=== PATIENT | male | born 1950 | race Caucasian/White ===

== ENCOUNTER 2019-02-04 05:47 | Day surgery (SDC) | payer MEDICARE, BC ==
[2019-01-27 15:47] VITALS: BMI 22.1
--- NOTE | 2019-01-30 23:31 | HP ---
HISTORY OF PRESENT ILLNESS: Mr. Couch is a 68-year-old male, who reports to our office. He recently retired from [employer] and wants to remain active. He fell on a climbing wall in August and has noticed that his back and leg pain is now refractory to therapy, medications, injections, and activity modification. REVIEW OF SYSTEMS: A 10-point review of systems has been completed and is negative other than stated in the above HPI. PAST MEDICAL HISTORY: Hypertension. ALLERGIES: BACTRIM. PAST SURGICAL HISTORY: Knee, sinus, ACDF C6, hernia repair. FAMILY HISTORY: Father is . Mother is . Daughter alive. SOCIAL HISTORY: The patient is a nonsmoker. Drinks alcohol occasionally. MEDICATIONS: 1. Prednisone. 2. Losartan and hydrochlorothiazide. 3. Zolpidem tartrate. 4. Excedrin Extra Strength. 5. Gabapentin. PHYSICAL EXAMINATION: CONSTITUTIONAL: The patient is a well-appearing, alert, and oriented. No visible distress. RESPIRATIONS: Normal work of breathing on room air. Symmetric chest rise. NEUROLOGIC: Motor exam, there is normal strength in the iliopsoas, quadriceps, hamstrings, anterior tib, EHL, gastroc, and toe flexors. Sensory exam, there is no loss to sensation. IMAGING DATA: MRI L3-4 and L4-5 severe stenosis at L5-S1, left greater than right foraminal disease, severe. Flexion-extension x-rays stable of the lumbar spine. ASSESSMENT AND PLAN: Lumbar stenosis without neurogenic claudication with radiculopathy. Dr. Altamirano has offered surgery to decompress L3 through S1 laminectomy with an L5-S1 foraminotomy. The patient states that he understands the risks and is willing to proceed with surgery. Job ID: [id number]
[2019-02-04] MEDS ORDERED: Bupivacaine HCl 0.5%/Epinephrine 1:200,000/PF 30 ml Vial ONE (06:17)
[2019-02-04] MEDS ORDERED: Thrombin 5000 UNITS/5 ML VIAL ONE (06:17)
[2019-02-04] MEDS ORDERED: Sodium Chloride 0.9% 10 ML ONE (06:17)
[2019-02-04] MEDS ORDERED: Fentanyl 100 MCG/2 ML VIAL ONE ×3 (06:36→10:49)
[2019-02-04] MEDS ORDERED: HYDROmorphone 2 MG/ML VIAL SLOW IVP PRN (08:52)
[2019-02-04] MEDS ORDERED: Promethazine HCl 25 MG/ML VIAL IM PRN ×2 (08:52→12:16)
[2019-02-04] MEDS ORDERED: Ondansetron HCl/PF 4 MG/2 ML Vial IVP PRN (08:52)
[2019-02-04] MEDS ORDERED: Promethazine HCl 25 MG/ML VIAL SLOW IVP PRN (08:52)
--- NOTE | 2019-02-04 11:27 | OP ---
DATE OF PROCEDURE: 02/04/2019 NARCOTICS AGENT: Ning Lopes PA-C PREOPERATIVE INDICATION: Treat pain and prevent neurological deterioration. PREOPERATIVE DIAGNOSIS: Multilevel lumbar stenosis with neurogenic claudication. POSTOPERATIVE DIAGNOSIS: Multilevel lumbar stenosis with neurogenic claudication. PROCEDURE PERFORMED: Decompressive laminectomy, medial facetectomy, foraminotomy L3-L4, L4-L5, L5-S1, left-sided L4-L5 microdiskectomy, operating microscope. PREOPERATIVE MEDICATION: Ancef 2 g IV. DRAIN NUMBER: Zero. DRAIN TYPE: None. DESCRIPTION OF PROCEDURE: The patient was brought to the operating room. General endotracheal anesthesia was induced. The patient was carefully positioned on the operating table in the prone position with the chest and hips supported by gel-filled chest rolls. A lateral fluoro radiograph was used to plan our incision. The lumbar skin was sterilely prepped and draped. We opened with a 10-blade knife and we controlled bleeding with bipolar and monopolar cautery. We used monopolar cautery to dissect through subcutaneous tissues to the thoracodorsal fascia. We incised the fascia in the midline and reflected the paraspinal muscles off the spinous process and laminae of L3, L4, L5 and the superior portion of the sacrum. A lateral fluoro radiograph confirmed the levels upon which we were operating. We then used an Adson rongeur to remove the spinous processes of L3, L4, and L5. Using a Kerrison rongeur, we fashioned a laminectomy down the midline. We widened our laminectomy defect by performing medial facetectomies and foraminotomies. At L4-L5, we needed the operating microscope to dissect through cranial lesion/scar tissue. We brought the operative microscope into the field. Under microscopic magnification using microsurgical techniques, we carefully dissected dense scar tissue off the dura. We identified the L5 nerve root and the L5 nerve root foramina as well as the L5 pedicles. This was done on both sides, and we carefully performed medial facetectomies and foraminotomies over those nerve roots. With the operating microscope, we went back to the L3, L4, L5, and S1 nerve roots, and made sure our Dominguez ball probe could pass through the lateral recess and out their respective foramina on both sides without impingement. We then turned our attention to the left side at L4-L5. Here, gentle retraction of the thecal sac revealed an intervertebral disk protrusion in the ventral epidural space with a small portion of a freshly herniated disk just anterior to the L5 nerve root. We carefully incised the disk and removed loose fragments of this with blunt hook and pituitary rongeurs. There was no significant opening into the intervertebral space. Loose fragments of disk were removed until lateral recess was well decompressed. We then waxed the bone edges, controlled the epidural bleeding with gentle bipolar cautery and irrigated the entire wound with bacitracin irrigation. We infused local anesthetic in the paraspinal muscles. We removed the operating microscope, closed the wound in anatomical layers and applied a sterile dressing. This was a clean case, no contamination. Job ID: [id number]
[2019-02-04] MEDS ORDERED: Acetaminophen 650 MG Suppository PR PRN (12:16)
[2019-02-04] MEDS ORDERED: Promethazine HCl 12.5 MG SUPP PR PRN (12:16)
[2019-02-04] MEDS ORDERED: Mag-Al 1200 mg/1200 mg/30 ML UDCUP PO PRN (12:16)
[2019-02-04] MEDS ORDERED: Acetaminophen/Codeine 30-300mg Tablet PO PRN (12:16)
[2019-02-04] MEDS ORDERED: diphenhydrAMINE 50 MG/ML VIAL IVP PRN (12:16)
[2019-02-04] MEDS ORDERED: Acetaminophen 325 MG TAB PO PRN (12:16)
[2019-02-04] MEDS ORDERED: Ondansetron PF 4 MG/2 ML Vial IM PRN (12:16)
[2019-02-04] MEDS ORDERED: diphenhydrAMINE 25 MG CAP PO PRN (12:16)
[2019-02-04] MEDS ORDERED: Prochlorperazine 10 MG/2 ML VIAL IM PRN (12:16)
[2019-02-04] MEDS ORDERED: Promethazine 25 MG TAB PO PRN (12:16)
[2019-02-04] MEDS ORDERED: Bisacodyl 10 MG SUPP PR PRN (12:16)
[2019-02-04] MEDS ORDERED: Milk Of Magnesia 30 ML UDCUP PO PRN (12:16)
[2019-02-04] MEDS ORDERED: Morphine 2 MG/ML SYRINGE SLOW IVP PRN (12:18)
[2019-02-04] MEDS ORDERED: CEFAZOLIN 2 GM in Premix Bag 1 BAG IVPB SCH (12:30)
[2019-02-04] MEDS: Morphine 4 MG/ML VIAL SLOW IVP PRN ×2 (12:37→21:17)
[2019-02-04] MEDS: Sodium Chloride 0.9% 1,000 ML IV SCH ×2 (12:42→23:42)
[2019-02-04] MEDS: Acetaminophen/Codeine 30-300mg Tablet PO PRN ×3 (12:45→20:07)
[2019-02-04] MEDS ORDERED: Ondansetron PF 4 MG/2 ML Vial ONE (17:36)
[2019-02-04] MEDS ORDERED: Dexamethasone 20 MG/5 ML VIAL ONE (17:36)
[2019-02-04] MEDS ORDERED: PROPOFOL 200 MG/20 ML VIAL ONE (17:36)
[2019-02-04] MEDS ORDERED: Rocuronium Bromide 10 MG/ML (10ML VIAL) ONE (17:36)
[2019-02-04] MEDS ORDERED: Lidocaine 1% PF 5 ML VIAL ONE (17:36)
[2019-02-04] MEDS ORDERED: ePHEDrine 50 MG/ML VIAL ONE (17:36)
[2019-02-04] MEDS ORDERED: Glycopyrrolate 0.2 MG/ML 5 ML SYRINGE ONE (17:36)
[2019-02-04] MEDS: tiZANidine HCl 4 MG TAB PO PRN (18:18)
[2019-02-05] MEDS: Acetaminophen/Codeine 30-300mg Tablet PO PRN ×2 (00:13→04:10)
[2019-02-05] MEDS: tiZANidine HCl 4 MG TAB PO PRN ×2 (00:20→07:24)
[2019-02-05 07:16] VITALS: BP 101/66; TEMP 98.7
--- NOTE | 2019-02-05 10:07 | PRG ---
DATE OF SERVICE: 02/05/2019 Mr. Couch is a 68-year-old male, who is one day out from lumbar laminectomy, L3 through S1. There were no fevers reported last night. No events. He has been up walking laps around the nurse's station this morning. He is eating breakfast when I see him. He states that his legs feel significantly better than prior to surgery. However, the lumbar area is quite sore, especially when he first gets up, which is to be expected. Our plan for Mr. Couch is when he is ready for activities of daily living. He can be discharged home. Followup has been arranged. Job ID: [id number]
== END 2019-02-05 11:10 | disposition home or self-care (01) ==
LOC: SDC 05:47 → SURG B 10:12 → SDC 02-05 11:10
PROVIDERS: ATTEND Neurological Surgery
PROC: 01NB0ZZ Release Lumbar Nerve, Open Approach (ICD-10-PCS; principal; 2019-02-04)
PROC: 0SB20ZZ Excision of Lumbar Vertebral Disc, Open Approach (ICD-10-PCS; 2019-02-04)
DX: M48.062 Spinal stenosis, lumbar region with neurogenic claudication (principal); M54.16 Radiculopathy, lumbar region; I10 Essential (primary) hypertension; Z79.899 Other long term (current) drug therapy; Z88.2 Allergy status to sulfonamides; Z98.1 Arthrodesis status
CPT/HCPCS: 76000; J0131; J0670; J0690; J1100; J2001; J2270; J2405; J2550; J2704; J3010; J3370; J3490; Q0163; Q0169

== ENCOUNTER 2020-03-15 08:13 | Outpatient (CLI) | payer MEDICARE, BC, OTHER ==
[2020-03-16 12:04] LABS: SARS-CoV-2 MS2 Positive; SARS-CoV-2 N Gene Negative; SARS-CoV-2 S Gene Negative; SARS-CoV-2 by NAA Not Detected (NotDetected); SARS-CoV-2 orf1ab Negative
== END 2020-03-15 08:14 | disposition home or self-care (01) ==
LOC: LABBT 08:13
PROVIDERS: ATTEND Ophthalmology Retina Specialist
DX: H35.372 Puckering of macula, left eye (principal); Z20.828 Contact with and (suspected) exposure to other viral communicable diseases
CPT/HCPCS: 87635; U0003

== ENCOUNTER 2020-03-18 06:10 | Day surgery (SDC) | payer MEDICARE, BC ==
[2020-03-17 12:45] VITALS: BMI 21.5
[2020-03-18] MEDS ORDERED: Fluorouracil 100 MG, Enoxaparin Sodium 25 MG, EPINEPHrine 0.3 MG in Ophthalmic Irrigati... IRR SCH (06:30)
[2020-03-18] MEDS ORDERED: Phenylephrine 2.5% Ophth Soln 5 ML BOT ONE (07:00)
[2020-03-18] MEDS ORDERED: Cyclopentolate 1% Opth Drop 2 ML BOT ONE (07:00)
[2020-03-18] MEDS ORDERED: Bupivacaine PF 0.75% SDV 10 ML ONE (12:22)
[2020-03-18] MEDS ORDERED: Indocyanine Green 25 MG/10 ML VIAL ONE (12:22)
[2020-03-18] MEDS ORDERED: Triamcinolone 40 MG/ML VIAL ONE (12:22)
[2020-03-18] MEDS ORDERED: Maxitrol 0.1% Opth Oint 3.5 GM TUBE ONE (12:22)
[2020-03-18] MEDS ORDERED: Lidocaine 4% PF 5 ML AMP ONE (12:22)
[2020-03-18] MEDS ORDERED: Lidocaine 1% PF 5 ML VIAL ONE (12:22)
[2020-03-18] MEDS ORDERED: PROPOFOL 200 MG/20 ML VIAL ONE (12:22)
[2020-03-18] MEDS ORDERED: CEFAZOLIN 1 GM VIAL ONE (12:22)
--- NOTE | 2020-03-19 16:28 | OP ---
DATE OF PROCEDURE: 03/18/2020 PREOPERATIVE DIAGNOSIS: Epiretinal membrane, left eye. POSTOPERATIVE DIAGNOSIS: Epiretinal membrane, left eye. PROCEDURES PERFORMED: Pars plana vitrectomy, membrane peel, left eye. ANESTHESIA: Local with monitored anesthesia care. DESCRIPTION OF PROCEDURE: The patient was identified in the preoperative holding area. Appropriate informed consent for the planned surgical procedure on the left eye had been obtained. The patient was transported to the operative suite. Appropriate cardiopulmonary monitoring was established. Local anesthesia obtained using retrobulbar modified Van Lint lid block using 50:50 mixture of 4% lidocaine and 0.75% bupivacaine. The patient was prepped and draped in the usual sterile manner for ophthalmic surgery on the left eye. Lid speculum was placed in the left eye. A 27-gauge trocar was placed in the conjunctiva and sclera superotemporally, inferotemporally, and supranasally. Infusion line was placed inferotemporally. Light pipe vitreous cutter was inserted into the eye. Core vitrectomy was performed. Indocyanine green dye was infused on the posterior pole x1, identifying the very large epiretinal membrane, was elevated in the periphery and peeled across the macula. The epiretinal membrane was noted to be very tightly adherent and very thin, but the epiretinal membrane was removed in one piece. Indirect ophthalmoscopy was used to examine the retina 360 degrees. No holes, breaks, or tears were identified. Trocars were removed and the eye was noted to retain pressure well. Retrobulbar Kenalog and subconjunctival Ancef were placed and antibiotic ointment was placed. The eye was patched and shielded. The patient was taken to the postop recovery unit in good condition, having suffered no immediate perioperative complications. The patient was instructed to keep patch and shield on, avoid lifting or bending. Followup appointment with Dr. Tineo. Job ID: [id number]
== END 2020-03-18 09:30 | disposition home or self-care (01) ==
LOC: SDC 06:10
PROVIDERS: ATTEND Ophthalmology Retina Specialist
PROC: 08T53ZZ Resection of Left Vitreous, Percutaneous Approach (ICD-10-PCS; principal; 2020-03-18)
PROC: 08NF3ZZ Release Left Retina, Percutaneous Approach (ICD-10-PCS; 2020-03-18)
DX: H35.372 Puckering of macula, left eye (principal); Z79.899 Other long term (current) drug therapy; Z88.1 Allergy status to other antibiotic agents; Z88.2 Allergy status to sulfonamides; Z98.1 Arthrodesis status
CPT/HCPCS: J0171; J0690; J1650; J2001; J2704; J3301; J3490; J9190

== ENCOUNTER 2021-03-03 08:30 | Outpatient (CLI) | payer MEDICARE, BC | END 2021-03-03 08:31 | disposition home or self-care (01) | LOC: TBSIIMAG 08:30 | PROVIDERS: ATTEND Anesthesiology Pain Medicine | DX: M47.26 Other spondylosis with radiculopathy, lumbar region (principal); M89.9 Disorder of bone, unspecified; M47.817 Spondylosis without myelopathy or radiculopathy, lumbosacral region; Z98.890 Other specified postprocedural states | CPT/HCPCS: 72148 ==

== ENCOUNTER 2021-04-14 11:41 | Outpatient (CLI) | payer MEDICARE, BC | END 2021-04-14 11:42 | disposition home or self-care (01) | LOC: CTENTCT 11:41 | PROVIDERS: ATTEND Otolaryngology Plastic Surgery within the Head & Neck | DX: J32.9 Chronic sinusitis, unspecified (principal) | CPT/HCPCS: 70486 ==

== ENCOUNTER 2021-05-20 09:59 | Outpatient (CLI) | payer MEDICARE, BC ==
[2021-05-20 11:18] LABS: Hemoglobin 12.7 g/dL (13.5-17.5)
[2021-05-20 11:35] LABS: Anion Gap 12 mmol/L (10-20); BUN (Urea Nitrogen) 20 mg/dL (8.4-25.7); Calc. Creatinine Clearance 0 mL/min (70-130); Calcium 9.3 mg/dL (7.8-10.44); Carbon Dioxide 28 mmol/L (23-31); Chloride 107 mmol/L (98-107); Glucose 95 mg/dL (83-110); Potassium 4.7 mmol/L (3.5-5.1); Sodium 142 mmol/L (136-145)
[2021-05-21 14:11] LABS: SARS-CoV-2 PCR by NAA Not Detected (NotDetected)
== END 2021-05-20 10:00 | disposition home or self-care (01) ==
LOC: LABBT 09:59
PROVIDERS: ATTEND Otolaryngology Plastic Surgery within the Head & Neck
DX: Z01.812 Encounter for preprocedural laboratory examination (principal); Z20.822 Contact with and (suspected) exposure to COVID-19
CPT/HCPCS: 80048; 85014; 85018; 93005; U0003; U0005; 93010

== ENCOUNTER 2021-05-25 08:46 | Day surgery (SDC) | payer MEDICARE, BC ==
[2021-05-23 10:59] VITALS: BMI 22.1
[2021-05-25] MEDS ORDERED: AFRIN NASAL MIST 15 ML BOT ONE (10:24)
[2021-05-25] MEDS ORDERED: Fentanyl 100 MCG/2 ML VIAL ONE (10:32)
[2021-05-25] MEDS ORDERED: XYLOCAINE 2%-EPI 1:100,000 20 ML VIAL ONE (11:15)
[2021-05-25] MEDS ORDERED: Oxymetazoline HCl 0.05% (30 ML BOT) ONE (11:15)
[2021-05-25] MEDS ORDERED: PROPOFOL 200 MG/20 ML VIAL ONE (11:46)
[2021-05-25] MEDS ORDERED: Dexamethasone 20 MG/5 ML VIAL ONE (11:46)
[2021-05-25] MEDS ORDERED: Ondansetron PF 4 MG/2 ML Vial ONE (11:46)
[2021-05-25] MEDS ORDERED: Lidocaine 1% PF 5 ML VIAL ONE (11:46)
[2021-05-25] MEDS ORDERED: HYDROcodone/Acetaminophen 5/325 mg Tablet ONE (13:35)
== END 2021-05-25 14:21 | disposition home or self-care (01) ==
LOC: SDC 08:46
PROVIDERS: ATTEND Otolaryngology Plastic Surgery within the Head & Neck
PROC: 8E09XBZ Computer Assisted Procedure of Head and Neck Region (ICD-10-PCS; principal; 2021-05-25)
PROC: 099Q8ZZ Drainage of Right Maxillary Sinus, Via Natural or Artificial Opening Endoscopic (ICD-10-PCS; 2021-05-25)
PROC: 099T8ZZ Drainage of Left Frontal Sinus, Via Natural or Artificial Opening Endoscopic (ICD-10-PCS; 2021-05-25)
PROC: 099W8ZZ Drainage of Right Sphenoid Sinus, Via Natural or Artificial Opening Endoscopic (ICD-10-PCS; 2021-05-25)
PROC: 099X8ZZ Drainage of Left Sphenoid Sinus, Via Natural or Artificial Opening Endoscopic (ICD-10-PCS; 2021-05-25)
PROC: 099S8ZZ Drainage of Right Frontal Sinus, Via Natural or Artificial Opening Endoscopic (ICD-10-PCS; 2021-05-25)
PROC: 09TV8ZZ Resection of Left Ethmoid Sinus, Via Natural or Artificial Opening Endoscopic (ICD-10-PCS; 2021-05-25)
PROC: 09TU8ZZ Resection of Right Ethmoid Sinus, Via Natural or Artificial Opening Endoscopic (ICD-10-PCS; 2021-05-25)
PROC: 09TL0ZZ Resection of Nasal Turbinate, Open Approach (ICD-10-PCS; 2021-05-25)
DX: J32.8 Other chronic sinusitis (principal); J34.3 Hypertrophy of nasal turbinates; J34.89 Other specified disorders of nose and nasal sinuses; G50.1 Atypical facial pain; J30.9 Allergic rhinitis, unspecified; I10 Essential (primary) hypertension; F17.220 Nicotine dependence, chewing tobacco, uncomplicated; Z79.82 Long term (current) use of aspirin; Z79.899 Other long term (current) drug therapy; Z88.2 Allergy status to sulfonamides
CPT/HCPCS: J1100; J2405; J2704; J3010

== ENCOUNTER 2022-01-12 08:00 | Outpatient (CLI) | payer MEDICARE, BC | END 2022-01-12 08:01 | disposition home or self-care (01) | LOC: TBSIIMAG 08:00 | PROVIDERS: ATTEND Anesthesiology Pain Medicine | DX: M71.38 Other bursal cyst, other site (principal); M47.816 Spondylosis without myelopathy or radiculopathy, lumbar region; M47.817 Spondylosis without myelopathy or radiculopathy, lumbosacral region; Z98.890 Other specified postprocedural states | CPT/HCPCS: 72148 ==

== ENCOUNTER 2022-02-22 09:38 | Outpatient (CLI) | payer MEDICARE, BC | END 2022-02-22 09:39 | disposition home or self-care (01) | LOC: CTENTCT 09:38 | PROVIDERS: ATTEND Student in an Organized Health Care Education/Training Program | DX: J01.90 Acute sinusitis, unspecified (principal) | CPT/HCPCS: 70486 ==

== ENCOUNTER 2022-03-02 07:48 | Outpatient (CLI) | payer MEDICARE, BC | END 2022-03-02 07:49 | disposition home or self-care (01) | LOC: TBSIIMAG 07:48 | PROVIDERS: ATTEND Neurological Surgery | DX: M54.50 Low back pain, unspecified (principal); M51.36 Other intervertebral disc degeneration, lumbar region; Z98.890 Other specified postprocedural states | CPT/HCPCS: 72110 ==

== ENCOUNTER 2022-04-26 09:59 | Outpatient (CLI) | payer MEDICARE, BC ==
[2022-04-26 11:36] LABS: Hemoglobin 13.3 g/dL (13.5-17.5); Mean Corpuscular HGB CONC 33.9 g/dL (32.0-36.0); Mean Corpuscular Hemoglobin 32.2 pg (27.0-33.0); Mean Corpuscular Volume 94.9 fl (81.2-95.1); Mean Platelet Volume 10.4 fl (7.4-10.4); Platelet Count 227 10x3/uL (150-450); RBC Distribution Width 11.7 % (11.5-14.5); Red Blood Cell (RBC) Count 4.13 10x6/uL (4.32-5.72); White Blood Cell (WBC) Count 4.3 10x3/uL (3.5-10.5)
[2022-04-26 12:00] LABS: PTT 25.5 sec (22.0-33.0)
== END 2022-04-26 10:00 | disposition home or self-care (01) ==
LOC: LABBT 09:59
PROVIDERS: ATTEND Neurological Surgery
DX: Z01.812 Encounter for preprocedural laboratory examination (principal); M51.26 Other intervertebral disc displacement, lumbar region; M71.38 Other bursal cyst, other site
CPT/HCPCS: 85027; 85610; 85730

== ENCOUNTER 2022-05-01 05:40 | Inpatient (IN) | payer MEDICARE, BC ==
[2022-05-01] MEDS ORDERED: Thrombin 5000 UNITS/5 ML VIAL ONE (06:12)
[2022-05-01] MEDS ORDERED: Neomycin-Polymyxin 1 ML AMP ONE (06:12)
[2022-05-01] MEDS ORDERED: Bupivacaine HCl 0.5%/Epinephrine 1:200,000/PF 30 ml Vial ONE (06:12)
[2022-05-01] MEDS ORDERED: fentaNYL PF 100 MCG/2 ML SYRINGE ONE (06:25)
[2022-05-01] MEDS ORDERED: Sodium Chloride 0.9% 100 ML ONE ×2 (06:48→15:17)
[2022-05-01] MEDS ORDERED: CEFAZOLIN 2 GM VIAL ONE ×2 (06:48→15:17)
[2022-05-01] MEDS ORDERED: PROPOFOL 200 MG/20 ML VIAL ONE (07:13)
[2022-05-01] MEDS ORDERED: Phenylephrine 10 MG/ML VIAL ONE (07:13)
[2022-05-01] MEDS ORDERED: Rocuronium Bromide 10 MG/ML (10ML VIAL) ONE (07:13)
[2022-05-01] MEDS ORDERED: Dexamethasone 20 MG/5 ML VIAL ONE (07:13)
[2022-05-01] MEDS ORDERED: Ondansetron PF 4 MG/2 ML Vial ONE (07:13)
[2022-05-01] MEDS ORDERED: Ketorolac Tromethamine 30 MG/ML VIAL ONE (07:13)
[2022-05-01] MEDS ORDERED: PHENYLEPHRINE-NS 100 MCG/ML 10 ML SYRINGE ONE (07:18)
[2022-05-01] MEDS ORDERED: Rocuronium Bromide 50 MG/5 ML VIAL ONE (11:07)
[2022-05-01] MEDS ORDERED: HYDROmorphone 2 MG/ML VIAL ONE (11:44)
[2022-05-01] MEDS ORDERED: SUGAMMADEX SODIUM 200 MG/2 ML VIAL ONE (11:55)
[2022-05-01] MEDS ORDERED: Bacitracin Zinc Ointment 30 gm TUBE ONE (12:24)
[2022-05-01] MEDS ORDERED: HYDROcodone/Acetaminophen 7.5/325 mg Tablet PO PRN (12:35)
[2022-05-01] MEDS ORDERED: Promethazine HCl 12.5 MG SUPP PR PRN (12:35)
[2022-05-01] MEDS ORDERED: Acetaminophen/Codeine 30-300mg Tablet PO PRN (12:35)
[2022-05-01] MEDS ORDERED: Milk Of Magnesia 30 ML UDCUP PO PRN (12:35)
[2022-05-01] MEDS ORDERED: Prochlorperazine 10 MG/2 ML VIAL IM PRN (12:35)
[2022-05-01] MEDS ORDERED: Mag-Al 1200 mg/1200 mg/30 ML UDCUP PO PRN (12:35)
[2022-05-01] MEDS ORDERED: Bisacodyl 10 MG SUPP PR PRN (12:35)
[2022-05-01] MEDS ORDERED: diphenhydrAMINE 50 MG/ML VIAL IVP PRN (12:35)
[2022-05-01] MEDS ORDERED: Gabapentin 100 MG CAP PO PRN (12:40)
[2022-05-01] MEDS ORDERED: HYDROmorphone 2 MG/ML VIAL SLOW IVP PRN (12:58)
[2022-05-01] MEDS ORDERED: Promethazine HCl 25 MG/ML VIAL IVPB PRN (12:58)
[2022-05-01] MEDS ORDERED: Promethazine HCl 25 MG/ML VIAL IM PRN (12:58)
[2022-05-01] MEDS ORDERED: Ondansetron HCl/PF 4 MG/2 ML Vial IVP PRN (12:58)
[2022-05-01] MEDS ORDERED: FENTANYL 50 MCG/ML 1 ML VIAL ONE ×2 (13:40→13:52)
[2022-05-01] MEDS ORDERED: HYDROmorphone 0.5 MG/0.5 ML SYRINGE ONE ×2 (14:02→15:41)
[2022-05-01] MEDS: CEFAZOLIN 2 GM in Sodium Chloride 0.9% 100 ML IVPB SCH ×2 (15:22→23:01)
[2022-05-01 16:43] LABS: SARS-CoV-2 NAA Rapid Test Not Detected (NotDetected)
[2022-05-01] MEDS: HYDROcodone/Acetaminophen 10/325 mg Tablet PO PRN ×2 (18:30→23:02)
[2022-05-01] MEDS: tiZANidine HCl 4 MG TAB PO PRN (18:31)
[2022-05-01] MEDS: Sodium Chloride 0.9% 1,000 ML IV SCH (18:36)
[2022-05-01] MEDS: Ondansetron PF 4 MG/2 ML Vial IVP PRN (21:06)
[2022-05-02] MEDS: HYDROcodone/Acetaminophen 10/325 mg Tablet PO PRN ×4 (05:34→20:45)
[2022-05-02] MEDS: Morphine 4 MG/ML VIAL SLOW IVP PRN ×3 (05:35→13:05)
[2022-05-02] MEDS: Tamsulosin HCl 0.4 MG CAP PO SCH (05:35)
[2022-05-02] MEDS: Sodium Chloride 0.9% 1,000 ML IV SCH ×2 (09:21→16:03)
[2022-05-02] MEDS: Gabapentin 300 MG CAP PO SCH ×3 (09:27→20:44)
[2022-05-02] MEDS: Losartan 25 MG TAB PO SCH (09:27)
[2022-05-02] MEDS: Hydrochlorothiazide 25 MG TAB PO SCH (09:28)
[2022-05-02] MEDS: Ondansetron PF 4 MG/2 ML Vial IVP PRN (18:54)
[2022-05-02 20:31] VITALS: BMI 19.5
[2022-05-02] MEDS: tiZANidine HCl 4 MG TAB PO PRN (20:44)
[2022-05-03] MEDS: Sodium Chloride 0.9% 1,000 ML IV SCH (00:37)
[2022-05-03] MEDS: HYDROcodone/Acetaminophen 10/325 mg Tablet PO PRN ×2 (05:36→09:32)
[2022-05-03] MEDS: Tamsulosin HCl 0.4 MG CAP PO SCH (05:36)
[2022-05-03 08:53] VITALS: BP 153/88; TEMP 98.4
[2022-05-03] MEDS: Losartan 25 MG TAB PO SCH (09:31)
[2022-05-03] MEDS: Hydrochlorothiazide 25 MG TAB PO SCH (09:31)
[2022-05-03] MEDS: Gabapentin 300 MG CAP PO SCH (09:31)
[2022-05-05] MEDS ORDERED: FLU VACC QS2022-23(65YR UP)/PF 240 MCG/0.7 ML SYRINGE IM ONE (09:00)
== END 2022-05-03 11:54 | disposition home or self-care (01) | DRG 519 ==
LOC: SDC 05:40 → SJJU 17:37 → OBSVTOIN 17:37
PROVIDERS: ADMIT Neurological Surgery; ATTEND Neurological Surgery
PROC: 0SB20ZZ Excision of Lumbar Vertebral Disc, Open Approach (ICD-10-PCS; principal; 2022-05-01)
PROC: 01NB0ZZ Release Lumbar Nerve, Open Approach (ICD-10-PCS; 2022-05-01)
PROC: 00UT0KZ Supplement Spinal Meninges with Nonautologous Tissue Substitute, Open Approach (ICD-10-PCS; 2022-05-01)
DX: M54.16 Radiculopathy, lumbar region (principal); G96.09 Other spinal cerebrospinal fluid leak; M71.38 Other bursal cyst, other site; Z20.822 Contact with and (suspected) exposure to COVID-19; R51.9 Headache, unspecified; Z98.890 Other specified postprocedural states; Z88.1 Allergy status to other antibiotic agents
CPT/HCPCS: C1713; C1776; C1788; J0780; J1100; J1170; J1885; J2270; J2370; J2405; J2704; J3010; J3370; J3490; J7050; U0002

== ENCOUNTER 2023-01-05 06:18 | Day surgery (SDC) | payer MEDICARE, BC ==
[2023-01-04 12:39] VITALS: BMI 21.4
[2023-01-05] MEDS ORDERED: Glycopyrrolate 0.2 MG/ML 5 ML SYRINGE ONE (08:32)
[2023-01-05] MEDS ORDERED: Lidocaine 1% PF 5 ML VIAL ONE (08:32)
[2023-01-05] MEDS ORDERED: PROPOFOL 200 MG/20 ML VIAL ONE (08:32)
[2023-01-05] MEDS ORDERED: Loperamide HCl 2 MG CAP PO SCH (09:45)
== END 2023-01-05 10:15 | disposition home or self-care (01) ==
LOC: SDC 06:18
PROVIDERS: ATTEND Internal Medicine
PROC: 0DBE8ZZ Excision of Large Intestine, Via Natural or Artificial Opening Endoscopic (ICD-10-PCS; principal; 2023-01-05)
DX: A04.71 Enterocolitis due to Clostridium difficile, recurrent (principal)
CPT/HCPCS: J2704

== ENCOUNTER 2023-07-11 12:28 | Outpatient (CLI) | payer MEDICARE ==
[~2023-07-11 12:28] MED LIST: Iopamidol 370 76% 100 ML VIAL ONE
== END 2023-07-11 12:29 | disposition home or self-care (01) ==
LOC: CT 12:28
PROVIDERS: ATTEND Physician Assistant Medical
DX: R10.9 Unspecified abdominal pain (principal); R50.9 Fever, unspecified; N20.0 Calculus of kidney; K59.00 Constipation, unspecified
CPT/HCPCS: 74177; 82565

== ENCOUNTER 2023-07-24 13:33 | Outpatient (CLI) | payer MEDICARE | END 2023-07-24 13:34 | disposition home or self-care (01) | LOC: SCSMRI 13:33 | PROVIDERS: ATTEND Physician Assistant Medical | DX: N28.89 Other specified disorders of kidney and ureter (principal) | CPT/HCPCS: 74183 ==

== ENCOUNTER 2023-07-31 09:57 | Outpatient (CLI) | payer MEDICARE ==
[2023-07-31 11:31] LABS: Bilirubin Neg (Negative); Blood, Urine Negative (Negative); Glucose, Urine (Dipstick) Normal (Negative); Ketone, Urine Negative (Negative); Leukocyte Negative (Negative); Nitrite Positive (Negative); Protein, Urine (Dipstick) 15 mg/dl (Neg-Trace); Urobilinogen Normal mg/dL (Less than 2)
[2023-07-31 11:34] LABS: Hematocrit 36.4 % (38.8-50.0); Mean Corpuscular HGB CONC 35.7 g/dL (32.0-36.0); Mean Corpuscular Hemoglobin 33.3 pg (27.0-33.0); Mean Corpuscular Volume 93.3 fl (81.2-95.1); Mean Platelet Volume 10.9 fl (7.4-10.4); Platelet Count 212 10x3/uL (150-450); RBC Distribution Width 11.9 % (11.5-14.5)
[2023-07-31 11:49] LABS: Anion Gap 12 mmol/L (10-20); BUN (Urea Nitrogen) 26 mg/dL (8.4-25.7); Calc. Creatinine Clearance 0 mL/min (70-130); Calcium 9.1 mg/dL (7.8-10.44); Carbon Dioxide 27 mmol/L (23-31); Chloride 104 mmol/L (98-107); Estimated GFR 90; Glucose 89 mg/dL (83-110); Potassium 4.3 mmol/L (3.5-5.1); Prothrombin Time 10.9 sec (9.5-12.1); Sodium 139 mmol/L (136-145)
[2023-07-31 12:17] LABS: Clarity Clear (Clear)
[2023-07-31 12:22] LABS: Bacteria/HPF 3+ HPF (None Seen); RBC/HPF 0-3 HPF (0-3)
== END 2023-07-31 09:58 | disposition home or self-care (01) ==
LOC: LABBT 09:57
PROVIDERS: ATTEND Urology
DX: Z01.818 Encounter for other preprocedural examination (principal); N28.1 Cyst of kidney, acquired; N20.0 Calculus of kidney; C61 Malignant neoplasm of prostate; Z90.79 Acquired absence of other genital organ(s)
CPT/HCPCS: 80048; 81001; 85027; 85610; 85730; 87077; 87086; 87186; 93005; 93010

== ENCOUNTER 2023-08-08 08:43 | Day surgery (SDC) | payer MEDICARE ==
[2023-07-31 10:59] VITALS: BMI 21.4
[2023-08-08] MEDS ORDERED: LevoFLOXacin D5W 500 mg (100 mL) BAG ONE (10:06)
[2023-08-08] MEDS ORDERED: Iopamidol 15 ML ONE (10:56)
[2023-08-08] MEDS ORDERED: Lidocaine 2% PF 5 ML VIAL ONE (11:06)
[2023-08-08] MEDS ORDERED: Rocuronium Bromide 10 MG/ML (10ML VIAL) ONE (11:06)
[2023-08-08] MEDS ORDERED: fentaNYL PF 100 MCG/2 ML SYRINGE ONE (11:06)
[2023-08-08] MEDS ORDERED: PROPOFOL 20 ML ONE (11:06)
[2023-08-08] MEDS ORDERED: Lidocaine 1% PF 5 ML VIAL ONE (11:25)
[2023-08-08] MEDS ORDERED: Ondansetron PF 4 MG/2 ML Vial ONE (11:32)
[2023-08-08] MEDS ORDERED: Dexamethasone 20 MG/5 ML VIAL ONE (11:32)
[2023-08-08] MEDS ORDERED: SUGAMMADEX SODIUM 200 MG/2 ML VIAL ONE (12:14)
[2023-08-08] MEDS ORDERED: Phenazopyridine HCl 100 MG TAB ONE (13:24)
[2023-08-08] MEDS ORDERED: Oxybutynin 5 MG TAB ONE (13:25)
[2023-08-08] MEDS ORDERED: Meperidine HCl/PF 25 MG (1 mL) VIAL ONE (13:35)
== END 2023-08-08 14:45 | disposition home or self-care (01) ==
LOC: SDC 08:43
PROVIDERS: ATTEND Urology
PROC: 0TF48ZZ Fragmentation in Left Kidney Pelvis, Via Natural or Artificial Opening Endoscopic (ICD-10-PCS; principal; 2023-08-08)
PROC: 0T778DZ Dilation of Left Ureter with Intraluminal Device, Via Natural or Artificial Opening Endoscopic (ICD-10-PCS; 2023-08-08)
DX: N20.0 Calculus of kidney (principal); I10 Essential (primary) hypertension; N28.9 Disorder of kidney and ureter, unspecified; N28.1 Cyst of kidney, acquired; G43.909 Migraine, unspecified, not intractable, without status migrainosus; Z79.899 Other long term (current) drug therapy; Z79.1 Long term (current) use of non-steroidal anti-inflammatories (NSAID); Z88.1 Allergy status to other antibiotic agents; Z85.46 Personal history of malignant neoplasm of prostate; Z90.79 Acquired absence of other genital organ(s); Z88.2 Allergy status to sulfonamides
CPT/HCPCS: 52356; 74018; 74420; C1747; C1769; C2617; J1100; J1956; J2001; J2175; J2405; J2704; Q9967